=== PATIENT | female | born 1990 | race Caucasian/White ===

== ENCOUNTER 2021-03-16 07:31 | Emergency (ER) | payer BC ==
[~2021-03-16 07:31] MED LIST: IBUPROFEN600 MG PO; ZOFRAN ODT 4 MG4 MG PO
[2021-03-16 08:53] LABS: HEMOGLOBIN 13.1 gm/dl (12.3-15.3); RED BLOOD COUNT 4.52 M/UL (4.00-5.10); WHITE BLOOD COUNT 10.7 K/UL (4.5-11.0)
[2021-03-16 09:07] LABS: BUN/CREATININE RATIO 26 (0-10)
[2021-03-16] MEDS ORDERED: CITRATE OF MAG296 ML PO (12:40)
== END 2021-03-16 12:55 | disposition home or self-care (01) ==
LOC: ER1 07:31
PROVIDERS: Physician Assistant
DX: K59.00 Constipation, unspecified (principal); D48.7 Neoplasm of uncertain behavior of other specified sites; K21.9 Gastro-esophageal reflux disease without esophagitis; Z79.899 Other long term (current) drug therapy
CPT/HCPCS: 80053; 81001; 82962; 84703; 85025; 96374; 96375; 99284; J1885; J2405; J7030; Q9967